=== PATIENT | male | born 2005 | race African-American/Black ===

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

== ENCOUNTER 2024-09-10 16:27 | Emergency (ER) | payer OTHER, SELFPAY ==
[2024-09-10] MEDS ORDERED: Ketorolac Tromethamine 30 MG (1 mL) VIAL ONE (17:54)
== END 2024-09-10 18:35 | disposition home or self-care (01) ==
LOC: ERS 16:27
DX: M62.838 Other muscle spasm (principal); M79.604 Pain in right leg
CPT/HCPCS: 96372; 99283; J1885